=== PATIENT | female | born 1945 | race Caucasian/White ===

== ENCOUNTER → 2017-02-08 | Outpatient (CLI) | payer MEDICARE, BC | LOC: MC.RAD 07:58 | DX: Z12.31 Encounter for screening mammogram for malignant neoplasm of breast (principal) ==

== ENCOUNTER → 2018-03-17 | Outpatient (CLI) | payer MEDICARE, BC | LOC: MC.RAD 03-01 11:20 | DX: Z12.31 Encounter for screening mammogram for malignant neoplasm of breast (principal) ==

== ENCOUNTER → 2019-03-20 | Outpatient (CLI) | payer MEDICARE, BC | LOC: MC.RAD 06:50 | DX: Z12.31 Encounter for screening mammogram for malignant neoplasm of breast (principal) ==

== ENCOUNTER 2020-02-08 06:30 | Day surgery (SDC) | payer MEDICARE, BC ==
[~2020-02-08] VITALS: Ht 157.5 cm; Wt 78.0 kg
[2020-02-08 06:52] VITALS: BP 126/73; PULSE 81; TEMP 98.5
[2020-02-08] MEDS ORDERED: K-DUR20 MEQ PO (06:55)
[2020-02-08] MEDS ORDERED: HCTZ 25MG TAB25 MG PO (06:55)
[2020-02-08] MEDS ORDERED: ASPIRIN 81M81 MG/TA2 PO (06:56)
--- NOTE | 2020-02-08 07:20 | NUR ---
Dr. Fan is at the bedside to speak with the patient at this time.
--- NOTE | 2020-02-08 08:26 | NUR ---
Dr. Fan comes to the bedside and speaks with the patient's spouse.
[2020-02-08 08:35] VITALS: BP 108/67; PULSE 72; TEMP 97.4
--- NOTE | 2020-02-08 08:35 | NUR ---
Patient arrives to endo bay 3 via cart post-procedure, accompanied by Endo RN Erika Naik. She is drowsy, but awakens to voice. She ambulates with 1:1 assist to the chair in her room. Monitoring is applied -VSS and WNL on room air. Bedside report is received. She denies pain or nausea. Her spouse is at the bedside. She is given warm blankets for comfort. Will continue to monitor.
[2020-02-08 08:50] VITALS: BP 118/70; PULSE 69
--- NOTE | 2020-02-08 08:50 | NUR ---
Patient is resting comfortably in her room.
[2020-02-08 09:05] VITALS: BP 110/65; PULSE 67
--- NOTE | 2020-02-08 09:05 | NUR ---
VSS and WNL on room air. Patient is more awake. She is offered and receives coffee, water, and a muffin.
[2020-02-08 09:20] VITALS: BP 138/99; PULSE 68
--- NOTE | 2020-02-08 09:20 | NUR ---
VSS and WNL on room air. Denies pain, nausea, or need. Tolerated PO well.
--- NOTE | 2020-02-08 09:33 | NUR ---
Patient has met discharge criteria. Discharge instructions are discussed. She denies questions and verbalizes understanding. PIV is removed with catheter intact and hemostasis achieved. She changes to her clothing independently. She is escorted to the exit via wheelchair by staff. She is discharged to home with ride in private vehicle at 0933.
== END 2020-02-08 09:35 | disposition home or self-care (01) ==
LOC: SDCO 06:30
DX: Z12.11 Encounter for screening for malignant neoplasm of colon (principal); Z80.0 Family history of malignant neoplasm of digestive organs; I10 Essential (primary) hypertension; E66.9 Obesity, unspecified; F41.9 Anxiety disorder, unspecified; D47.3 Essential (hemorrhagic) thrombocythemia; Z85.828 Personal history of other malignant neoplasm of skin; Z90.710 Acquired absence of both cervix and uterus; Z79.82 Long term (current) use of aspirin; E87.6 Hypokalemia; Z90.79 Acquired absence of other genital organ(s); Z90.722 Acquired absence of ovaries, bilateral
CPT/HCPCS: J2704; J7030

== ENCOUNTER → 2021-01-30 | Outpatient (CLI) | payer MEDICARE, BC ==
[~2021-01-30] MED LIST: ASPIRIN 81M81 MG/TA2 PO; HCTZ 25MG TAB25 MG PO; K-DUR20 MEQ PO
== END ==
LOC: MC.RAD 09:02
DX: Z12.31 Encounter for screening mammogram for malignant neoplasm of breast (principal)

== ENCOUNTER → 2022-02-20 | Outpatient (CLI) | payer MEDICARE, BC | LOC: MC.RAD 07:36 | DX: Z12.31 Encounter for screening mammogram for malignant neoplasm of breast (principal) ==

== ENCOUNTER → 2023-09-16 | Outpatient (CLI) | payer MEDICARE, BC | LOC: MC.RAD 12:31 | DX: Z12.31 Encounter for screening mammogram for malignant neoplasm of breast (principal) ==